=== PATIENT | female | born 1980 | race Hispanic/Latino ===

== ENCOUNTER 2016-06-07 18:20 | Emergency (ER) | payer OTHER ==
[2016-06-07 18:20] VITALS: BMI 42.0
[2016-06-07 18:27] VITALS: BP 137/84; PULSE 91; RESP 18; TEMP 99.1; O2SAT 98
[2016-06-07] MEDS ORDERED: Sodium Chloride 0.9% 1,000 ML IV ONE (19:56)
--- NOTE | 2016-06-07 19:56 | C.PDOC ---
History Of Present Illness 35 year old female presents to the ED with complaints of sharp stabbing suprapubic discomfort since this morning. Patient states she woke up crying due to the pain and notes she has an IUD. Denies fever, chills, nausea, vomiting, vaginal bleeding or any other complaints at this time. Time Seen by Provider: 06/07/16 19:55 Chief Complaint (Nursing): Abdominal Pain History Per: Patient History/Exam Limitations: no limitations Onset/Duration Of Symptoms: Hrs Current Symptoms Are (Timing): Still Present Severity: Moderate Pain Scale Rating Of: 4 Location Of Pain/Discomfort: Suprapubic Radiation Of Pain To:: None Quality Of Discomfort: Sharp, Stabbing Associated Symptoms: denies: Fever, Chills, Nausea, Vomiting, Back Pain Abnormal Vaginal Bleeding: No Past Medical History Reviewed: Historical Data, Nursing Documentation, Vital Signs Vital Signs: Last Vital Signs Temp 99.1 F 06/07/16 18:26 Pulse 91 H 06/07/16 18:26 Resp 18 06/07/16 18:26 BP 137/84 06/07/16 18:26 Pulse Ox 98 06/07/16 20:41 - Medical History PMH: No Chronic Diseases - [facility] Procedures MANUAL ASSIST DELIV NEC (10/20/12) REPAIR OB LACERATION NEC (10/20/12) Family History: States: Unknown Family Hx - Social History Hx Alcohol Use: No Hx Substance Use: No - Immunization History Hx Tetanus Toxoid Vaccination: No Hx Influenza Vaccination: No Hx Pneumococcal Vaccination: No Review Of Systems Constitutional: Negative for: Fever, Chills Cardiovascular: Negative for: Chest Pain, Palpitations Respiratory: Negative for: Cough, Shortness of Breath, Wheezing Gastrointestinal: Positive for: Abdominal Pain (+Suprapubic pain). Negative for : Nausea, Vomiting, Diarrhea Genitourinary: Negative for: Dysuria, Frequency, Vaginal Bleeding Musculoskeletal: Negative for: Back Pain Neurological: Negative for: Weakness, Numbness Physical Exam - Physical Exam Appears: Non-toxic, No Acute Distress Skin: Warm, Dry Head: Atraumatic, Normacephalic Eye(s): bilateral: Normal Inspection Oral Mucosa: Moist Neck: Supple Chest: Symmetrical, No Deformity Cardiovascular: Rhythm Regular Respiratory: No Accessory Muscle Use Gastrointestinal/Abdominal: Soft, Tenderness (+Suprapubic tenderness), No Distention, No Guarding, No Rebound, Other (+Morbidly obese) Extremity: Normal ROM Neurological/Psych: Oriented x3, Normal Speech, Normal Cognition ED Course And Treatment - Laboratory Results Result Diagrams: 06/07/16 20:11 06/07/16 20:11 ECG: Interpreted By Me O2 Sat by Pulse Oximetry: 98 (Room air) Pulse Ox Interpretation: Normal Progress Note: Blood work and Urinalysis ordered and reviewed. Patient treated with Pepcid, Zofran, and IV fluids. Reevaluation Time: 22:46 Reassessment Condition: Improved Medical Decision Making Medical Decision Making: Upon provider reevaluation patient is feeling better, is medically stable, and requires no further treatment in the ED at this time. Patient will be discharged home with macrobid and naproxyn. Counseling was provided and all questions were answered regarding diagnosis and need for follow up with the referred clinic. There is agreement to discharge plan. Return if symptoms persist or worsen. Disposition Counseled Patient/Family Regarding: Studies Performed, Diagnosis, Need For Followup - Disposition Referrals: [facility] [Outside] Disposition: HOME/ ROUTINE Disposition Time: 19:56 Condition: FAIR Additional Instructions: Please return id symptoms recur Prescriptions: Nitrofurantoin Macrocrystals [Macrobid] 1 cap PO BID #14 cap Naproxen [Naprosyn] 1 tab PO BID PRN #25 tab PRN Reason: Pain Instructions: Abdominal Pain (ED), Gallstones (DC), Urinary Tract Infection in Women (DC) - Clinical Impression Clinical Impression: Abdominal pain, UTI (urinary tract infection), Gallstone - Scribe Statement The provider has reviewed the documentation as recorded by the Scribe Abhilash Baldwin. Provider Attestation: All medical record entries made by the Scribe were at my direction and personally dictated by me. I have reviewed the chart and agree that the record accurately reflects my personal performance of the history, physical exam, medical decision making, and the department course for this patient. I have also personally directed, reviewed, and agree with the discharge instructions and disposition.
[2016-06-07] MEDS ORDERED: Sodium Chloride 0.9% 1,000 ML ONE (20:16)
[2016-06-07 20:17] LABS: BASO # 0.1 K/uL (0.0-0.2); BASO % 0.7 % (0.0-2.0); EOS # 0.4 K/uL (0.0-0.7); EOS % 3.6 % (0.0-4.0); HEMATOCRIT 41.3 % (34.0-47.0); LYMPH # 3.2 K/uL (1.0-4.3); LYMPH % 26.1 % (20.0-40.0); MEAN CELL VOLUME 82.4 fL (81.0-99.0); MEAN CORPUSCULAR HEMOGLOBIN 27.3 pg (27.0-31.0); MEAN CORPUSCULAR HGB CONC 33.1 g/dL (33.0-37.0); MEAN PLATELET VOLUME 7.2 fL (7.2-11.7); MONO # 0.8 K/uL (0.0-0.8); MONO % 6.8 % (0.0-10.0); RED CELL DISTRIBUTION WIDTH 14.2 % (11.5-14.5); WHITE BLOOD COUNT 12.1 K/uL (4.8-10.8)
[2016-06-07 20:23] LABS: CHLORIDE 96 mmol/L (98-107); POTASSIUM 4.6 mmol/L (3.6-5.2); SODIUM 138 mmol/L (132-148)
[2016-06-07 20:25] LABS: GFR AFRICAN-AMERICAN > 60
[2016-06-07 20:26] LABS: ALB/GLOB RATIO 1.2 (1.0-2.1); ALKALINE PHOSPHATASE 78 U/L (38-126); ALT/SGPT 26 U/L (9-52); AST/SGOT 25 U/L (14-36); BILIRUBIN,TOTAL 0.3 mg/dL (0.2-1.3); BLOOD UREA NITROGEN 16 mg/dL (7-17); CARBON DIOXIDE 26 mmol/L (22-30); GLUCOSE,RANDOM 118 mg/dL (65-105); TOTAL PROTEIN 7.8 g/dL (6.3-8.3)
[2016-06-07 20:28] LABS: RBC URINE 2 /hpf (0-3); URINE BACTERIA FEW (<OCC); URINE BILIRUBIN NEGATIVE (NEGATIVE); URINE BLOOD NEGATIVE (NEGATIVE); URINE COLOR Yellow (YELLOW); URINE GLUCOSE (UA) NORMAL (Normal); URINE KETONE NEGATIVE (NEGATIVE); URINE LEUKOCYTE ESTERASE 2+ Leu/uL (Negative); URINE PROTEIN NEGATIVE (NEGATIVE); URINE UROBILINOGEN NORMAL mg/dL (0.2-1.0); WBC URINE 24 /hpf (0-5)
[2016-06-07] MEDS ORDERED: Iodixanol 320 MG/ML 100 ML BOTTLE IV ONE (21:51)
--- NOTE | 2016-06-08 08:20 | CT ---
PROCEDURE: CT Abdomen and Pelvis with intravenous contrast HISTORY: Abdominal pain. COMPARISON: None. TECHNIQUE: Multiple axial computed tomographic images of the abdomen and pelvis were performed with intravenous contrast. Subsequently, sagittal coronal reformatted images were obtained.. Contrast Dose: 100 cc of Visipaque 320 intravenous contrast was administered. Radiation dose: Total exam DLP = 1207 mGy-cm. This CT exam was performed using one or more of the following dose reduction techniques: Automated exposure control, adjustment of the mA and/or kV according to patient size, and/or use of iterative reconstruction technique. FINDINGS: LOWER THORAX: 4 millimeter nodule in the lingula on series 3, image 13. LIVER: Unremarkable. No gross lesion or ductal dilatation. GALLBLADDER AND BILE DUCTS: Contracted gallbladder. 9 millimeter calculus noted the level of the neck of the gallbladder. PANCREAS: Unremarkable. No gross lesion or ductal dilatation. SPLEEN: Unremarkable. ADRENALS: Unremarkable. No mass. KIDNEYS AND URETERS: 4 millimeter nonobstructing calculus in the upper to midpole of the left kidney. VASCULATURE: Unremarkable. No aortic aneurysm. BOWEL: Unremarkable. No obstruction. No gross mural thickening. Mild fecalization of the terminal ileum. APPENDIX: Unremarkable. Normal appendix. PERITONEUM: Unremarkable. No free fluid. No free air. LYMPH NODES: Unremarkable. No enlarged lymph nodes. BLADDER: Incomplete distention of the urinary bladder with associated urinary bladder wall thickening. Clinical correlation. REPRODUCTIVE: Intrauterine device in the uterus. BONES: Sclerosis of the bilateral SI joints. OTHER FINDINGS: Fat containing umbilical hernia. IMPRESSION: 9 millimeter calculus at the neck of the gallbladder. Correlation with ultrasound may be helpful if clinically indicated. 4 millimeter nonobstructive calculi in the left kidney. Mild urinary bladder wall thickening. Clinical correlation. 4 millimeter nodule in the lingula on series 3, image 13. Intrauterine device in place. Additional findings as above. These findings were preliminarily reported at 10:42 p.m. on 06/07/[address] Yancy devi from [employer].
== END 2016-06-07 22:55 | disposition home or self-care (01) ==
LOC: C.ER 18:20
DX: N39.0 Urinary tract infection, site not specified (principal); K80.20 Calculus of gallbladder without cholecystitis without obstruction
CPT/HCPCS: 74177; 80053; 81001; 83690; 84703; 85025; 85610; 85730; 96361; 96374; 96375; 99285; J2405; J7040; Q9967

== ENCOUNTER 2017-09-16 05:45 | Day surgery (SDC) | payer OTHER ==
[2017-09-12 08:54] VITALS: BMI 46.2
[2017-09-16] MEDS ORDERED: Lidocaine 1% 20 MG/2 ML PF AMP ONE (07:20)
[2017-09-16] MEDS ORDERED: Bupivacaine 0.25% 20 ML INJ IJ ONE (07:20)
[2017-09-16] MEDS ORDERED: ceFAZolin IV 2 gm in Dextrose 2 GM/50 ML BAG IVPB ONE (07:20)
[2017-09-16] MEDS ORDERED: Midazolam 2 MG/2 ML VIAL ONE (07:39)
[2017-09-16] MEDS ORDERED: Propofol 10 mg/ml Inj (20 ML) ONE (07:39)
[2017-09-16] MEDS ORDERED: Rocuronium 10 mg/ml (5 ml) ONE (08:26)
[2017-09-16] MEDS ORDERED: Neostigmine Methylsulfate 3mg/3ml Syringe IV ONE (09:11)
[2017-09-16] MEDS ORDERED: Albuterol HFA 90 mcg/actuation (8 g) ONE (09:25)
[2017-09-16] MEDS ORDERED: HYDROmorphone 0.5 mg/0.5 ml ISec IVP PRN (09:35)
--- NOTE | 2017-09-16 09:40 | PCM.SURG1 ---
Surgeon's Initial Post Op Note - Surgeon's Notes Surgeon: Dr. Bates Merchandise Associate: Dr. Rapp PGY3, Jasson Lomas OMS3 Type of Anesthesia: General Endo Pre-Operative Diagnosis: symptomatic cholelithiasis Operative Findings: see operative report Post-Operative Diagnosis: see operative report Operation Performed: laparoscopic cholecystectomy Specimen/Specimens Removed: gallbladder Estimated Blood Loss: EBL {In ML}: 30 Blood Products Given: N/A Drains Used: No Drains Post-Op Condition: Good Date of Surgery/Procedure: 09/16/17 Time of Surgery/Procedure: 08:00
--- NOTE | 2017-09-16 09:49 | PCM.OP ---
Operative Report - Operative Report Date of Surgery/Procedure: 09/16/17 Time of Surgery/Procedure: 07:30 Surgeon: Aiden Bates MD Nursing Staffing Coordinator: Gilbert Rapp DO (PGY3 resident) Anesthesia/Sedation: General endotracheal; 1% lidocaine + 0.25% Marcaine mix local anesthesia Pre-Operative Diagnosis: Symptomatic Cholelithiasis. Morbid Obesity. BMI 46 Post-Operative Diagnosis: Symptomatic Cholelithiasis; Chronic cholecystitis. Morbid Obesity. BMI 46 Indication for Surgery: This is a 36-year-old female without any prior surgical history with recurrent symptomatic cholelithiasis. Details of HPI in clinical chart. Taken to the operating room for laparoscopic cholecystectomy. Patient understands the risks and benefits of the procedure as documented in the clinic chart but specifically risk of cystic duct leak and common bile duct injury and has consented to the procedure. Operative Findings: Small contracted gallbladder, fluid filled, no discrete large stones. Mild inflammation;. Clips in place on cystic duct and cystic artery at end of case without evidence of bleeding or bile leak. Procedure/Operation Description: PROCEDURES PERFORMED: 1) Laparoscopic Cholecystectomy. . DESCRIPTION OF PROCEDURE: The patient was given a preoperative dose of Ancef 2g 20 minutes before the incision. SCD boots were placed for DVT prophylaxis. The patient had an orogastric tube placed in order to empty the stomach after the induction of general anesthesia. The abdomen was prepped and draped in sterile fashion. An optically viewing trocar with a 10mm 0 degree laparoscope was used to gain access into the abdominal cavity, 2cm above and 1cm left of umbilicus. All layers of the abdominal wall were seen and peritoneal entry directly visualized. The abdomen was then insufflated with C02 pneumoperitoneum to 15mmhg. The abdomen was insufflated to 15 mmHg pressure with CO2. A 10mm 30-degree viewing scope was then inserted and the abdomen was generally inspected and there was not found to be any additional signs of pathology. In the right upper quadrant, two 5-mm ports were placed after the induction of local anesthetic under direct vision and in the subxiphoid midline , a 10-mm radially dilating port was placed in the similar fashion. . The fundus of the gallbladder was identified beneath the liver edge and retracted to the right upper quadrant and the neck of the gallbladder was visualized. There were omental adhesions to the gallbladder that were taken down with a cominbation of sharp dissection and hook cautery. The peritoneal attachments from the lateral portion of the gallbladder/cystic duct junction were gently dissected and divided to open up the [place]. The [place] was then dissected up onto the liver bed posterior to the gallbladder in order to ensure that this was the cystic duct and not tenting of the common bile duct. The peritoneal attachments on the medial portion of the gallbladder going up to the side of the liver were taken. The critical view was obtained. The cystic artery and duct were then individually but doubly clipped and ligated and the clips were inspected. . Once this was completed, the gallbladder was dissected free from the liver bed using electrocautery and placed this in an endo catch bag. This was withdrawn through the subxiphoid port. Once this was done, the abdomen was reinspected. The clips were in good position on the cystic artery and duct stumps and the abdomen was generally irrigated and drained. Once this was done, the ports were removed from the abdomen and the abdomen was desufflated with air. The midline port was closed with 0 figure-of- eight Vicryl sutures using transfascial device under direct vision and the skin incisions were closed with 4-0 Vicryl sutures. The patient tolerated the procedure well and was extubated and stable in recovery after the procedure. . I was present throughout the entirety of the procedure. Sponge, needle and instrument counts were correct. Estimated Blood Loss: 15ml Complications: none Specimen: gallbladder Discharge & Condition: stable in recovery after the procedure.
[2017-09-16] MEDS ORDERED: Lactated Ringer's 1,000 ML IV ONE (10:45)
[2017-09-16 11:18] VITALS: BP 119/80; PULSE 71; RESP 18; TEMP 97; O2SAT 97
== END 2017-09-16 12:38 | disposition home or self-care (01) ==
LOC: C.SDS 05:45
PROVIDERS: ATTEND Surgery
DX: K80.10 Calculus of gallbladder with chronic cholecystitis without obstruction (principal); E66.01 Morbid (severe) obesity due to excess calories; Z68.42 Body mass index [BMI] 45.0-49.9, adult
CPT/HCPCS: 47562; 88304; J0690; J1170; J2001; J2250; J2704; J2710; J3010; J7120

== ENCOUNTER 2017-11-19 15:18 | Emergency (ER) | payer OTHER ==
[2017-11-19 15:18] VITALS: BMI 46.2
[2017-11-19 15:31] VITALS: RESP 18; TEMP 98.9
[2017-11-19 16:18] LABS: ALB/GLOB RATIO 1.3 (1.0-2.1); ALBUMIN 4.3 g/dL (3.5-5.0); ALT/SGPT 26 U/L (9-52); AST/SGOT 17 U/L (14-36); BLOOD UREA NITROGEN 17 mg/dL (7-17); CALCIUM 9.7 mg/dl (8.6-10.4); GFR NON-AFRICAN AMERICAN > 60
[2017-11-19 16:49] LABS: HEPATITIS B SURFACE AG Negative (NEGATIVE)
[2017-11-19 16:54] LABS: HEPATITIS A IGM NEGATIVE (NEGATIVE); HEPATITIS B CORE AB NEGATIVE (NEGATIVE)
[2017-11-19 17:40] VITALS: BP 121/83; PULSE 72
[2017-11-19 18:13] VITALS: O2SAT 99
[2017-11-19 18:13] LABS: HEPATITIS C ANTIBODY REACTIVE (NEGATIVE)
--- NOTE | 2017-11-19 18:13 | C.PDOC ---
History Of Present Illness 36 year old female presents to ED for possible Hepatitis. Patient reports she donated blood in October and received a letter advising further testing for Hepatitis. Also reports she is a patient at [facility]. PSHx cholecystectomy. Denies other past medical history, fever, nausea, vomiting, and other associated symptoms. Time Seen by Provider: 11/19/17 15:43 Chief Complaint (Nursing): Abnormal Labs History Per: Patient History/Exam Limitations: no limitations Onset/Duration Of Symptoms: Days Current Symptoms Are (Timing): Still Present Past Medical History Reviewed: Historical Data, Nursing Documentation, Vital Signs Vital Signs: Last Vital Signs Temp 98.9 F 11/19/17 17:38 Pulse 72 11/19/17 17:38 Resp 18 11/19/17 17:38 BP 121/83 11/19/17 17:38 Pulse Ox 99 11/19/17 20:36 - Medical History PMH: Bronchitis, Gastritis, Gall Bladder Disease, Kidney Stones Surgical History: Cholecystectomy - [employer] Procedures MANUAL ASSIST DELIV NEC (10/20/12) REPAIR OB LACERATION NEC (10/20/12) Family History: States: Unknown Family Hx - Social History Hx Alcohol Use: No Hx Substance Use: No - Immunization History Hx Tetanus Toxoid Vaccination: Yes Hx Influenza Vaccination: No Hx Pneumococcal Vaccination: No Review Of Systems Constitutional: Negative for: Fever, Chills Gastrointestinal: Negative for: Nausea, Vomiting Physical Exam - Physical Exam Appears: Non-toxic, No Acute Distress Skin: Normal Color, Warm, Dry Head: Atraumatic, Normacephalic Oral Mucosa: Moist Neck: Normal, Supple Cardiovascular: Rhythm Regular Respiratory: Other (NARD) Gastrointestinal/Abdominal: Normal Exam, Soft, No Tenderness, No Guarding, No Rebound Extremity: Normal ROM Neurological/Psych: Oriented x3, Normal Speech Gait: Steady ED Course And Treatment - Laboratory Results Result Diagrams: 11/19/17 16:00 O2 Sat by Pulse Oximetry: 99 (RA) Pulse Ox Interpretation: Normal Progress Note: Blood sent. Blood work reviewed, patient +Hepatitis C. Patient advised to follow up with PMD and Infectious Disease. Disposition Counseled Patient/Family Regarding: Studies Performed, Diagnosis, Need For Followup - Disposition Referrals: [facility] [Outside] Jovan Booker MD [Staff Provider] - Disposition: HOME/ ROUTINE Disposition Time: 18:15 Condition: STABLE Additional Instructions: FOLLOW UP WITH YOUR DOCTOR AT [facility] IN 1-2 DAYS, AND WITH INFECTIOUS DISEASE SPECIALIST WITHIN 1 WEEK RETURN TO ER IF YOU HAVE ANY CONCERNING SYMPTOMS Forms: [facility] (Georgian), General Discharge Instructions Print Language: [place] - POA Present On Arrival: None - Clinical Impression Clinical Impression: HCV antibody positive - Scribe Statement The provider has reviewed the documentation as recorded by the Scribe (Tressa Lu) Provider Attestation: All medical record entries made by the Scribe were at my direction and personally dictated by me. I have reviewed the chart and agree that the record accurately reflects my personal performance of the history, physical exam, medical decision making, and the department course for this patient. I have also personally directed, reviewed, and agree with the discharge instructions and disposition.
== END 2017-11-19 18:22 | disposition home or self-care (01) ==
LOC: C.ER 15:18
DX: B19.20 Unspecified viral hepatitis C without hepatic coma (principal)

== ENCOUNTER 2018-03-23 11:41 | Emergency (ER) | payer OTHER ==
[2018-03-23 11:41] VITALS: BMI 46.2
[2018-03-23 11:56] VITALS: BP 134/84; RESP 20; TEMP 98.2
[2018-03-23 12:01] VITALS: PULSE 92; O2SAT 96
[2018-03-23] MEDS ORDERED: Oxycodone/Acetaminophen 5/325 mg Tab PO STA (12:07)
--- NOTE | 2018-03-23 12:09 | C.PDOC ---
History Of Present Illness 37 year old female presents to the ED for evaluation of worsening right shoulder/upper back pain for 1 month. Patient notes onset was after trying to cathc grandmother from falling over. Patient denies direct trauma. Pain initially to right top of shoulder, now in right upper back and is worse with movement. Patient denies pain with neck movement. Patient now umable to full elevate right arm. Denies history of previous cervical radiculopathy, chronic right shoulder pain. Patient did not try any piyp-let-rrtwsar medication. Ivonne ent had limited relief with topical pain Rx. WORSENING R SHOULDER/UPPER BACK PAIN X 1 MO. ONSET AFTER TRYING TO CATCH GRANDMOTHER FROM FALLING OVER. DENIES DIRECT TRAUMA. PAIN INITIALLY R TOP OF SH OULDER NOW IN R UPPER BACK, WORSE W MOVEMENT. NO PAIN W NECK MOVEMENT. NOW UNABLE TO FULLY ELEVATE R ARM. DENIES HO PREV CERV RADICULOPATHY, CHRONIC R SHOULDER PAIN. NO OTC PAIN MEDS TRIED, LIMITED RELIEF W TOPICAL PAIN RX EXAM MILD DIST NONTOXIC HEENT NEG NECK AROM WO DIFF, NONTEND NEURO NO FOCAL DEF EXT R SHOULDER LIMITED EXTENSION TO 100 W REPRODUC PAIN. FULL ABD/ADDUCTION, INT/EXT ROTATION SKIN NEG REMAINDER NEG MDM ADVISED POSSIBLE NEED FOR MRI SHOULDER/NECK. SLING, PAIN RX, GABAPENTIN, NEED PMD FU FOR REFERAL MRI/ORTHO Time Seen by Provider: 03/23/18 12:07 Chief Complaint (Nursing): Back Pain History Per: Patient History/Exam Limitations: no limitations Onset/Duration Of Symptoms: Other (one month ) Current Symptoms Are (Timing): Still Present Past Medical History Reviewed: Historical Data, Nursing Documentation, Vital Signs Vital Signs: Last Vital Signs Temp 98.2 F 03/23/18 11:55 Pulse 92 H 03/23/18 11:55 Resp 20 03/23/18 11:55 BP 134/84 03/23/18 11:55 Pulse Ox 96 03/23/18 11:55 - Medical History PMH: Bronchitis, Gastritis, Gall Bladder Disease, Kidney Stones Surgical History: Cholecystectomy - [facility] Procedures MANUAL ASSIST DELIV NEC (10/20/12) REPAIR OB LACERATION NEC (10/20/12) Family History: States: Unknown Family Hx - Social History Hx Alcohol Use: Yes Hx Substance Use: No - Immunization History Hx Tetanus Toxoid Vaccination: Yes Hx Influenza Vaccination: No Hx Pneumococcal Vaccination: No Review Of Systems Musculoskeletal: Positive for: Shoulder Pain (right), Back Pain (upper ) Physical Exam - Physical Exam Appears: Non-toxic, Other (in mild distress ) Skin: Normal Color, Warm, Dry Head: Atraumatic, Normacephalic Eye(s): bilateral: Normal Inspection Ear(s): Bilateral: Normal Nose: Normal, No Discharge Oral Mucosa: Moist Throat: Normal, No Erythema, No Exudate Neck: Normal ROM, No Midline Cervical Tenderness, No Paracervical Tenderness, Supple Chest: Symmetrical, No Deformity, No Tenderness Cardiovascular: Rhythm Regular, No Murmur Respiratory: Normal Breath Sounds, No Rales, No Rhonchi, No Wheezing Extremity: No Normal ROM (limited extension of right shoulder to 100 with reproducible pain ), Capillary Refill (less than 2 seconds ), Other (full abduction/adduction and internal/external rotation ) Neurological/Psych: Oriented x3, Normal Speech, Normal Cognition ED Course And Treatment O2 Sat by Pulse Oximetry: 96 (on RA) Pulse Ox Interpretation: Normal Progress Note: Toradol IM, Zofran PO, Percocet PO given. Arm sling applied. Medical Decision Making Medical Decision Making: ADVISED POSSIBLE NEED FOR MRI SHOULDER/NECK. SLING, PAIN RX, GABAPENTIN, NEED PMD FU FOR REFERAL MRI/ORTHO Disposition Counseled Patient/Family Regarding: Diagnosis, Need For Followup, Rx Given - Disposition Referrals: [facility] [Outside] Disposition: HOME/ ROUTINE Disposition Time: 12:08 Condition: IMPROVED Prescriptions: Gabapentin [Neurontin] 300 mg PO TID #30 cap Ibuprofen [Motrin] 600 mg PO Q6 #30 tab Methylprednisolone [Medrol] 4 mg PO DAILY #1 packet Instructions: Rotator Cuff Injury (DC) Forms: [employer] ([place]an) - Clinical Impression Clinical Impression: Rotator cuff (capsule) sprain, Upper back pain - Scribe Statement The provider has reviewed the documentation as recorded by the Scribe (Kacey Bates) Provider Attestation: All medical record entries made by the Scribe were at my direction and personally dictated by me. I have reviewed the chart and agree that the record accurately reflects my personal performance of the history, physical exam, medical decision making, and the department course for this patient. I have also personally directed, reviewed, and agree with the discharge instructions and disposition. Orthopedic Care Application Of:: Sling
[2018-03-23] MEDS ORDERED: Oxycodone/Acetaminophen 5/325 mg Tab ONE (12:19)
== END 2018-03-23 12:30 | disposition home or self-care (01) ==
LOC: C.ER 11:41
DX: S43.421A Sprain of right rotator cuff capsule, initial encounter (principal); X58.XXXA Exposure to other specified factors, initial encounter; M54.89 Other dorsalgia
CPT/HCPCS: 96372; 99285; J1885

== ENCOUNTER 2018-03-23 14:08 | Outpatient (CLI) | payer OTHER | END 2018-03-23 14:09 | disposition home or self-care (01) | LOC: C.USIC 14:08 | DX: R10.2 Pelvic and perineal pain (principal) ==

== ENCOUNTER 2018-04-16 13:20 | Outpatient (CLI) | payer OTHER | END 2018-04-16 13:21 | disposition home or self-care (01) | LOC: C.MRIC 13:20 | DX: S43.421A Sprain of right rotator cuff capsule, initial encounter (principal) ==